=== PATIENT | male | born 1975 | race Hispanic/Latino ===

== ENCOUNTER 2017-10-02 09:16 | Emergency (ER) | payer MEDICAID ==
[2017-10-02] MEDS ORDERED: LIDOCAINE 2%-EPI 1:200,000 20 ML VIAL IJ ONE (09:33)
[2017-10-02] MEDS ORDERED: ACETAMINOPHEN EXTRA STRENGTH 500 MG TABLET ONE (09:56)
== END 2017-10-02 10:08 | disposition home or self-care (01) ==
LOC: EDH 09:16
DX: S01.111A Laceration without foreign body of right eyelid and periocular area, initial encounter (principal); F31.9 Bipolar disorder, unspecified; Z72.0 Tobacco use; X58.XXXA Exposure to other specified factors, initial encounter; Y93.89 Activity, other specified; Y92.89 Other specified places as the place of occurrence of the external cause; Y99.8 Other external cause status
CPT/HCPCS: 12052; 99284; J3490

== ENCOUNTER 2020-12-16 08:38 | Emergency (ER) | payer MEDICAID ==
[2020-12-16] MEDS ORDERED: TETANUS/DIPHTHERIA TOXOID [ADULT] 0.5 ML VIAL IM ONE (08:54)
[2020-12-16] MEDS ORDERED: LIDOCAINE HCL 1% 20 ML VIAL ONE (08:54)
[2020-12-16] MEDS ORDERED: LIDOCAINE HCL 2% VISCOUS 15 ML UDCUP ONE (09:30)
== END 2020-12-16 10:56 | disposition home or self-care (01) ==
LOC: EDH 08:38
DX: S01.81XA Laceration without foreign body of other part of head, initial encounter (principal); I10 Essential (primary) hypertension; F41.9 Anxiety disorder, unspecified; F31.9 Bipolar disorder, unspecified; F20.9 Schizophrenia, unspecified; Z72.0 Tobacco use; X58.XXXA Exposure to other specified factors, initial encounter; Y93.89 Activity, other specified; Y92.488 Other paved roadways as the place of occurrence of the external cause; Y99.8 Other external cause status
CPT/HCPCS: 12052; 90471; 90714

== ENCOUNTER 2021-11-20 18:50 | Emergency (ER) | payer MEDICAID ==
[~2021-11-20] VITALS: Ht 175.3 cm; Wt 100.7 kg
[2021-11-20 18:52] VITALS: BP 130/91
[2021-11-20] MEDS ORDERED: KETOROLAC 30MG VIAL (30MG/ML) IM ONE (21:00)
[2021-11-20] MEDS ORDERED: CYCLOBENZAPRINE HCL 10 MG TABLET PO ONE (21:00)
[2021-11-20] MEDS ORDERED: NAPR-1023 PO (21:06)
== END 2021-11-20 21:55 | disposition home or self-care (01) ==
LOC: EDH 18:50
DX: S89.92XA Unspecified injury of left lower leg, initial encounter (principal); I10 Essential (primary) hypertension; Z79.1 Long term (current) use of non-steroidal anti-inflammatories (NSAID); Z90.49 Acquired absence of other specified parts of digestive tract; W18.39XA Other fall on same level, initial encounter; Y93.89 Activity, other specified; Y92.89 Other specified places as the place of occurrence of the external cause; Y99.8 Other external cause status
CPT/HCPCS: 29505; 73562; J1885